=== PATIENT | female | born 1945 | race Caucasian/White ===

== ENCOUNTER → 2019-08-30 | Outpatient (CLI) | payer OTHER ==
[~2019-08-30] MED LIST: ACTOS 45 MG45 M1; ALPRAZOLAM 0.50.5 M1; AMBIEN 10 MG TA10 MG PO; ASPIR 8181 MG PO; ASPIRIN325 PO; ATIVAN0.5 MG PO; BUPROPION XL150 MG PO; CARAFATE 1 GM TA1 G1 PO; CARDIZEM CD240 MG PO; COZAAR 50 MG TA50 M1 PO; CRESTOR40 MG; FLUOXETINE HCL40 MG PO; FUROSEMIDE 40 M40 M1 PO; GABAPENTIN100 MG PO; GLUCOPHAGE1000 MG PO; GLYBURID-METFO1 EAC3; HUMALOG100 UNIT/1 SUBQ; IMDUR 30 MG TAB30 M1 PO; LANSOPRAZOLE30 MG PO; LANTUS SUBQ; LOVASTATIN 20 M20 MG PO; METAMUCIL PAC1 UDPKT PO; NEURONTIN 300300 M1; NEURONTIN 300300 M1 PO; NORCO 5-325 TA1 EACH PO; ONDANSETRON HCL4 M2 PO; PLAVIX 75 MG TA75 MG PO; PROBIOTIC1 EAC1 PO; PROVENTIL HFA6.7 G1 INH; SIMVASTATIN40 MG; SINGULAIR 10 MG10 M1; SYMBICORT; TOPROL XL50 MG PO; TRAMADOL 50 MG50 MG PO; XARELTO10 MG PO
== END ==
LOC: M.LAB 09:21
PROVIDERS: ATTEND Internal Medicine Gastroenterology
DX: Z01.812 Encounter for preprocedural laboratory examination (principal); R13.10 Dysphagia, unspecified; R12 Heartburn; R19.7 Diarrhea, unspecified

== ENCOUNTER 2020-02-13 11:56 | Emergency (ER) | payer BC ==
[~2020-02-13] VITALS: Ht 172.7 cm; Wt 97.5 kg
[2020-02-13 12:30] LABS: ABSOLUTE BASOPHILS 0.1 thou/uL (0.0-0.2); ABSOLUTE EOSINOPHILS 0.3 thou/uL (0.0-0.7); ABSOLUTE LYMPHOCYTES 1.1 thou/uL (0.8-5.3); ABSOLUTE MONOCYTES 0.6 thou/uL (0.0-1.2); ABSOLUTE NEUTROPHILS 7.8 thou/uL (1.6-8.1); BASOPHILS 1.1 %; EOSINOPHILS 2.8 %; HEMOGLOBIN 11.7 gm/dL (12.0-15.0); LYMPHOCYTES 11.3 %; MCH 27.1 pg (26.0-34.0); MCHC 33.3 g/dL (28.0-37.0); MCV 81.3 fL (80.0-100.0); MONOCYTES 6.4 %; MPV 7.2 fl. (7.2-11.1); NUCLEATED RBCS 0 /100WBC; PLATELET COUNT* 326 thou/uL (150-400); POLYS 78.4 %; RBC 4.31 mil/uL (4.20-5.00); RDW-CV 14.4 % (10.5-14.5)
[2020-02-13 12:40] LABS: CALCIUM 8.1 mg/dL (8.5-10.1); CREATININE 1.4 mg/dL (0.6-1.3)
[2020-02-13 12:44] LABS: ALBUMIN 2.8 g/dL (3.4-5.0); TOTAL BILIRUBIN 0.4 mg/dL (<0.1-1.0); TOTAL PROTEIN 7.8 g/dL (6.4-8.2)
[2020-02-13] MEDS ORDERED: CIPROFLOXACIN500 M1 PO (13:07)
[2020-02-13] MEDS ORDERED: MOTION RELIEF25 MG PO (13:07)
[2020-02-13 14:00] VITALS: BP 174/61
--- NOTE | 2020-02-13 15:36 | EKG ---
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: [facility] : 1945 Requested By: Jt Salgado Order Number: [id number] MD: Nicolás Saldivar Measurements Intervals [place] Rate: 59 P: 26 [place]: 156 QRS: -24 QRSD: 117 T: -3 QT: 447 QTc: 443 Interpretive Statements Sinus rhythm artifact noted Nonspecific intraventricular conduction delay Borderline T abnormalities, lateral leads Compared to ECG 11/30/2013 13:19:44 no change Electronically Signed On 02-13-2020 15:36:20 GEAR HOBBER by Nicolás Saldivar [email or web address] <ELECTRONICALLY SIGNED> By: Nicolás Saldivar MD, FAC 02/13/20 1536 1306 1306 Nicolás Saldivar MD, MERGED WITH [facility] /EPI
== END 2020-02-13 14:00 | disposition home or self-care (01) ==
LOC: M.ERS 11:56
PROVIDERS: Family Medicine
DX: B34.9 Viral infection, unspecified (principal); R11.2 Nausea with vomiting, unspecified; R19.7 Diarrhea, unspecified; Z20.828 Contact with and (suspected) exposure to other viral communicable diseases; I10 Essential (primary) hypertension; E11.9 Type 2 diabetes mellitus without complications; G47.33 Obstructive sleep apnea (adult) (pediatric); K21.9 Gastro-esophageal reflux disease without esophagitis; J44.9 Chronic obstructive pulmonary disease, unspecified; Z88.1 Allergy status to other antibiotic agents; Z88.8 Allergy status to other drugs, medicaments and biological substances; Z90.49 Acquired absence of other specified parts of digestive tract; Z90.710 Acquired absence of both cervix and uterus; Z86.2 Personal history of diseases of the blood and blood-forming organs and certain disorders involving the immune mechanism